=== PATIENT | female | born 1970 | race Caucasian/White ===

== ENCOUNTER 2021-06-19 09:20 | Inpatient (IN) ==
--- NOTE | 2021-06-19 09:47 | DR.SOBA ---
HPI Time Seen Time Seen by Provider: 06/19/21 09:46 Primary Care Physician Primary Care Physician: STEVE SHAW Complaints Chief Complaint Doctors Comments: 51 y/o female presents with cough and shortness of breath. Dx'd donnie Covid 06/07. Was essentially asymptomatic then. Was treated with azithromycin, decadron. Started feeling ill 3 days ago. + cou gh, essentially dry. + having shortness of breath. Pulse ox dropping into the 80s. Having generalized body aches, fever, diarrhea. Has had some nausea, no vomiting. Feeling lightheaded at times. + h/o PE in the past, is on Xarelto. Chief Complaint:: PT. STATES SHE WAS DIAGNOSED WITH COVID 19 ON 06/07/21. PT. C/O SHORTNESS OF BREATH AND A PERSISTENT COUGH. PT. HAS TRIED OTC MEDICATIONS FOR COUGH WITH NO RELIEF. COVID-19 Coronavirus risk:travel/contact w/high risk person: Yes Has patient experienced Coronavirus symptoms: Yes Coronavirus symptoms experienced: Coughing and Shortness of Breath Reviewed Nurses Notes Reviewed: Yes Source History Provided: Patient Mode of Arrival Mode of Arrival: Ambulatory Timing Onset of Chief Complaint: 06/16/21 PMH PMH Past Medical History: Yes Past Medical History: Asthma, Diabetes and Dyslipidemia Past Medical History Comment: DVT, PE Past Surgical History: Yes Surgical History: Ortho Surgery Family History History of Family Medical Conditions: No Social History Does patient currently use any type of tobacco product: No Have you used tobacco products in the last 12 months: No Type of Tobacco Use: None Does any household member use tobacco: No Alcohol Use: None Do you use any recreational Drugs:: No Lives With: Family Lives Where: Home Travel Risk Coronavirus risk:travel/contact w/high risk person: Yes Has patient experienced Coronavirus symptoms: Yes Coronavirus symptoms experienced: Coughing and Shortness of Breath Infectious screening In the last 2 months have you had wt loss of >10#?: NO Have you had fever, night sweats or hemotysis?: No Have you traveled outside the country in the last 6 months?: No Isolation: Droplet ROS Review of Systems Constitutional: Fever and Weakness Eyes: No Symptoms Reported ENTM: No Symptoms Reported Respiratoy: Non-Productive Cough and Short of Breath Cardiovascular: No Symptoms Reported Gastrointestinal/Abdominal: Diarrhea and Nausea Genitourinary: No Symptoms Reported Neurological: Weakness and Dizziness Musculoskeletal: Muscle Pain Integumentary: No Symptoms Reported Hematologic/Lymphatic: No Symptoms Reported Psychiatric: No Symptoms Reported All Other Systems: Reviewed and Negative PE Vital Signs Vitals: Temperature 97.3 F Pulse Rate 77 Respiratory Rate 25 Blood Pressure 118/59 O2 Sat by Pulse Oximetry 95 General Limitations: No Limitations General Appearance: Alert, In No Apparent Distress and Other (+ frequent dry cough) Head Head Exam: Normal Inspection Eyes Eye exam: Normal Appearance, PERRL and EOMI ENT ENT Exam: Normal Exam and Mucous Membranes Moist Neck Neck Exam: Normal Inspection and Full ROM Chest Chest Inspection: Normal Inspection Respiratory Respiratory Exam: Normal Lung Sounds Bilat; negative Accessory Muscle Use and Respiratory Distress Respiratory Exam: Bilateral: Clear to Auscultation Cardiovascular Cardiovascular Exam: Regular Rate, Normal Rhythm and Normal Heart Sounds Abdominal Exam Abdominal Exam: Normal Inspection, Normal Bowel Sounds and Soft; negative Tenderness Extremities Extremities Exam: Normal Inspection and Full ROM; negative Tenderness and Edema Back Back Exam: Normal Inspection Neurologic Neurological Exam: Alert, Oriented X3 and CN II-XII Intact; negative Motor Sensory Deficit Psychiatric Psychiatric Exam: Normal Affect Skin Skin Exam: Warm and Dry MDM Differential Diagnosis Differential Diagnosis: Bronchitis, CHF, Pneumonia and Pulmonary embolism COURSE Treatment Treatment: 51 y/o female with cough, dyspnea over the past 3 days. Dx'd with Covid 2/17, but no symptoms then. W/u initiated. 1300 - CXR with Covid changes. + hypoxic on ABG. Better on O2. Pt reportedly covid + 12 days ago with little symptoms. Having worsening cough, hypoxia. Will admit. Discussed with covering hospitalist, Dr De Leon. + low potassium, 2.8. Given po and IV potassium, was unable to tolerate the IV potassium. Pt given IV rocephin/decadron. ROR Labs Reviewed Laboratory Results Reviewed?: Yes Result Diagrams: 06/19/21 10:07 06/19/21 10:07 Laboratory: WBC 7.2 X10^3/uL (3.6-10.0) 06/19/21 10:07 RBC 5.13 X10^6/uL (3.5-5.4) 06/19/21 10:07 Hgb 12.4 g/dL (12.0-16.0) 06/19/21 10:07 Hct 37.9 % (36.0-47.0) 06/19/21 10:07 MCV 73.9 fL (80.0-100.0) L 06/19/21 10:07 MCH 24.2 pg (27.0-34.0) L 06/19/21 10:07 MCHC 32.7 g/dL (33.0-35.0) L 06/19/21 10:07 RDW 15.0 % (11.6-16.5) 06/19/21 10:07 Plt Count 310 X10^3/uL (150.0-450.0) 06/19/21 10:07 Plt Count Comment Adequate (ADEQUATE) 06/19/21 10:07 MPV 7.2 fL (7.4-11.0) L 06/19/21 10:07 Neut % (Auto) 79.1 % (42.0-75.0) H 06/19/21 10:07 Lymph % (Auto) 13.1 % (21.0-51.0) L 06/19/21 10:07 Kay % (Auto) 7.6 % (0.0-13.0) 06/19/21 10:07 Eos % (Auto) 0.1 % (0.9-2.9) L 06/19/21 10:07 Baso % (Auto) 0.1 % (0.2-1.0) L 06/19/21 10:07 Neut # (Auto) 5.7 x10^3/uL (2.2-4.8) H 06/19/21 10:07 Lymph # (Auto) 0.9 X10^3/uL (1.3-2.9) L 06/19/21 10:07 Kay # (Auto) 0.5 x10^3/uL (0.3-0.8) 06/19/21 10:07 Eos # (Auto) 0.0 x10^3/uL (0.0-0.2) 06/19/21 10:07 Baso # (Auto) 0.0 X10^3/uL (0.0-0.1) 06/19/21 10:07 Absolute Nucleated RBC 0.1 /100WBC 06/19/21 10:07 Plt Morphology Comment Normal (NORMAL) 06/19/21 10:07 RBC Morphology Abnormal (NORMAL) A 06/19/21 10:07 Hypochromasia Slight A 06/19/21 10:07 Microcytosis Slight A 06/19/21 10:07 D-Dimer 0.49 ug/ml (0.0-0.57) 06/19/21 10:07 Sample Site Rr 06/19/21 11:45 ABG pH 7.470 (7.35-7.45) H 06/19/21 11:45 ABG pCO2 34.0 mmHg (35.0-45.0) L 06/19/21 11:45 ABG pO2 56.0 mmHg (80.0-100.0) L 06/19/21 11:45 ABG HCO3 24.7 mmol/L (22-26) 06/19/21 11:45 ABG O2 Saturation 91.0 % (90-100) 06/19/21 11:45 ABG Base Excess 1.4 mmol/L (-2.0-2.0) 06/19/21 11:45 Juan Test Pos 06/19/21 11:45 A-a Gradient 51.0 mmHg 06/19/21 11:45 FiO2 21.0 06/19/21 11:45 Blood Gas Comments Milagro well 06/19/21 11:45 Sodium 140 mmol/L (136-145) 06/19/21 10:07 Corrected Sodium 141 mmol/L (136-145) 06/19/21 10:07 Potassium 2.8 mmol/L (3.5-5.1) L* 06/19/21 10:07 Chloride 105 mmol/L (98-107) 06/19/21 10:07 Carbon Dioxide 23.6 mmol/L (21-32) 06/19/21 10:07 BUN 17 mg/dL (7-18) 06/19/21 10:07 Creatinine 1.07 mg/dL (0.55-1.02) H 06/19/21 10:07 Est GFR (MDRD) Af Amer > 60 (>60) 06/19/21 10:07 Est GFR (MDRD) Non-Af 57 (>60) L 06/19/21 10:07 Glucose 152 mg/dL (65-99) H 06/19/21 10:07 Calcium 7.6 mg/dL (8.5-10.1) L 06/19/21 10:07 Corrected Calcium 8.8 mg/dL (8.5-10.1) 06/19/21 10:07 Total Bilirubin 1.00 mg/dL (0.2-1.0) 06/19/21 10:07 AST 24 Units/L (15-37) 06/19/21 10:07 ALT 38 Units/L (12-78) 06/19/21 10:07 Alkaline Phosphatase 57 Units/L (46-116) 06/19/21 10:07 Creatine Kinase 128 Units/L (26-192) 06/19/21 10:07 CK-MB (CK-2) < 1.0 ng/mL (0-4.0) 06/19/21 10:07 CK/CKMB % Calc 0.8 % (<4) 06/19/21 10:07 Troponin I High Sens 8.1 ng/L (4.0-60.0) 06/19/21 10:07 B-Natriuretic Peptide 34.3 pg/mL (0-79) 06/19/21 10:07 Total Protein 6.3 g/dL (6.4-8.2) L 06/19/21 10:07 Albumin 2.5 g/dL (3.4-5.0) L 06/19/21 10:07 Globulin 3.8 g/dL (2.5-4.5) 06/19/21 10:07 Albumin/Globulin Ratio 0.7 Ratio (1.1-2.1) L 06/19/21 10:07 SARS-CoV-2 (PCR) Positive (NEGATIVE) A 06/19/21 10:07 Influenza Type A (PCR) Negative (NEGATIVE) 06/19/21 10:07 Influenza Type B (PCR) Negative (NEGATIVE) 06/19/21 10:07 RSV (PCR) Negative (NEGATIVE) 06/19/21 10:07 Other Results Comments: Potassium 2.8, + for covid EKG Rate: 82 [place]: Normal Rhythm: NSR Block: IVCD ST: Nonsp Opioid Opioid Risk Tool Age (Vijay box if 16-45): No History of Preadolescent Sexual Abuse: No Total: 0 Total Score Risk Category: Low Risk Copyright: Gopal LIN predicting aberrant behaviors Diagnosis Discharge Problem: Pneumonia due to 2019-nCoV, Hypoxia, Acute hypokalemia
--- NOTE | 2021-06-19 10:08 | RAD ---
HISTORYShortness of breathSTUDYSingle-view chestCOMPARISONNone availableFINDINGSThe trachea is midline. The cardiac silhouette is enlarged with a tortuous thoracic aorta. Scattered interstitial lung changes arms are prominent vascular markings. The findings may be on the basis of atypical infectious etiology or underlying developing CHF. The bony thorax is unremarkable.IMPRESSIONDiffuse interstitial changes with prominent perivascular hilar changes for which different considered would be atypical pneumonia versus developing CHF.Electronically signed by: YUN GONZALEZ (Jun 19, 2021 10:07:33)
[2021-06-19] MEDS ORDERED: TESSALON PERLES PO ONE ×2 (10:14→10:24)
[2021-06-19 10:16] LABS: BASOPHILS % (AUTO) 0.1 % (0.2-1.0); EOSINOPHILS % (AUTO) 0.1 % (0.9-2.9); HEMATOCRIT 37.9 % (36.0-47.0); HEMOGLOBIN 12.4 g/dL (12.0-16.0); LYMPHOCYTES # (AUTO) 0.9 X10^3/uL (1.3-2.9); LYMPHOCYTES % (AUTO) 13.1 % (21.0-51.0); MEAN CORPUSCULAR HEMOGLOBIN 24.2 pg (27.0-34.0); MEAN CORPUSCULAR HGB CONC 32.7 g/dL (33.0-35.0); MEAN CORPUSCULAR VOLUME 73.9 fL (80.0-100.0); MEAN PLATELET VOLUME 7.2 fL (7.4-11.0); MONOCYTES # (AUTO) 0.5 x10^3/uL (0.3-0.8); MONOCYTES % (AUTO) 7.6 % (0.0-13.0); NEUTROPHILS # (AUTO) 5.7 x10^3/uL (2.2-4.8); NEUTROPHILS % (AUTO) 79.1 % (42.0-75.0); RED BLOOD COUNT 5.13 X10^6/uL (3.5-5.4); WHITE BLOOD COUNT 7.2 X10^3/uL (3.6-10.0)
[2021-06-19 10:35] LABS: HYPOCHROMASIA SLIGHT; MICROCYTOSIS SLIGHT; PLATELET MORPHOLOGY COMMENT NORMAL (NORMAL)
[2021-06-19 10:43] LABS: ALANINE AMINOTRANSFERASE 38 Units/L (12-78); ALBUMIN 2.5 g/dL (3.4-5.0); ALKALINE PHOSPHATASE 57 Units/L (46-116); ASPARTATE AMINO TRANSFERASE 24 Units/L (15-37); BLOOD UREA NITROGEN 17 mg/dL (7-18); CALCIUM 7.6 mg/dL (8.5-10.1); CARBON DIOXIDE 23.6 mmol/L (21-32); CHLORIDE 105 mmol/L (98-107); CKMB % 0.8 % (<4); COR CA(FOR HYPOALB) 8.8 mg/dL (8.5-10.1); COR NA(FOR HYPERGLY) 141 mmol/L (136-145); CREATINE KINASE 128 Units/L (26-192); CREATINE KINASE MB < 1.0 ng/mL (0-4.0); CREATININE 1.07 mg/dL (0.55-1.02); SODIUM 140 mmol/L (136-145); TOTAL PROTEIN 6.3 g/dL (6.4-8.2); eGFR NON BLACK RACES 57 (>60)
[2021-06-19] MEDS ORDERED: POTASSIUM CHLORIDE LIQ 20 MEQ UDC PO ONE (11:21)
[2021-06-19] MEDS ORDERED: K-RIDER 10 MEQ/NS 100 ML 10 MEQ/100 ML BAG IV ONE ×2 (11:21→11:40)
[2021-06-19] MEDS ORDERED: POTASSIUM CHLORIDE LIQ 20 MEQ UDC ONE (11:40)
[2021-06-19 11:50] LABS: ABG ALLEN TEST POS; ABG BASE EXCESS 1.4 mmol/L (-2.0-2.0); ABG HCO3 24.7 mmol/L (22-26)
[2021-06-19] MEDS ORDERED: DECADRON INJ IVP ONE (13:28)
[2021-06-19] MEDS ORDERED: DECADRON INJ ONE (13:38)
[2021-06-19] MEDS ORDERED: MAGNESIUM SULFATE 1 GRAM/100 mL PREMIX 1 G/100 ML BAG IV PRN (14:34)
[2021-06-19] MEDS ORDERED: POTASSIUM CHLORIDE LIQ 20 MEQ UDC PO PRN (14:34)
[2021-06-19] MEDS ORDERED: POTASSIUM CHL 40 MEQ/NS 0.45% 500 ML IV PRN (14:34)
[2021-06-19] MEDS ORDERED: POTASSIUM CHL 60 MEQ/NS 0.45% 500 ML IV PRN (14:34)
[2021-06-19] MEDS ORDERED: K-RIDER 10 MEQ/NS 100 ML 10 MEQ/100 ML BAG IV PRN (14:34)
[2021-06-19] MEDS ORDERED: KLOR-CON PO PRN (14:34)
[2021-06-19] MEDS ORDERED: MICRO K EXTEN CAP 10 MEQ PO PRN (14:34)
[2021-06-19] MEDS ORDERED: K-DUR TAB 20 MEQ PO PRN (14:34)
[2021-06-19] MEDS ORDERED: NS 250 ML IV 250 ML IV ONE (15:33)
[2021-06-19] MEDS: ROCEPHIN 1 GRAM IV PREMIX 1 G/50 ML IV.SOLN. IV SCH (15:45)
[2021-06-19] MEDS: XOPENEX 1.25 MG/3 ML NEBULE NEB SCH (17:50)
[2021-06-19] MEDS ORDERED: NovoLIN R (or HumuLIN R) SUBCUT PRN (20:33)
[2021-06-19] MEDS: PULMICORT NEB TX 0.5 MG NEB SCH (20:38)
[2021-06-19] MEDS: BROVANA IN SCH (20:38)
[2021-06-19] MEDS: K-DUR TAB 20 MEQ PO SCH (20:52)
[2021-06-20] MEDS: XOPENEX 1.25 MG/3 ML NEBULE NEB SCH ×4 (00:44→16:59)
[2021-06-20] MEDS: TESSALON PERLES PO PRN ×3 (04:23→20:39)
[2021-06-20 04:40] LABS: BASOPHILS % (AUTO) 0.2 % (0.2-1.0); HEMATOCRIT 37.5 % (36.0-47.0); HEMOGLOBIN 12.4 g/dL (12.0-16.0); LYMPHOCYTES # (AUTO) 0.8 X10^3/uL (1.3-2.9); LYMPHOCYTES % (AUTO) 20.7 % (21.0-51.0); MEAN CORPUSCULAR HEMOGLOBIN 24.3 pg (27.0-34.0); MEAN CORPUSCULAR VOLUME 73.5 fL (80.0-100.0); MEAN PLATELET VOLUME 7.4 fL (7.4-11.0); MONOCYTES # (AUTO) 0.3 x10^3/uL (0.3-0.8); MONOCYTES % (AUTO) 9.3 % (0.0-13.0); NEUTROPHILS # (AUTO) 2.6 x10^3/uL (2.2-4.8); NEUTROPHILS % (AUTO) 69.8 % (42.0-75.0); RED BLOOD COUNT 5.11 X10^6/uL (3.5-5.4); RED CELL DISTRIBUTION WIDTH 14.9 % (11.6-16.5); WHITE BLOOD COUNT 3.7 X10^3/uL (3.6-10.0)
[2021-06-20 04:51] LABS: ALANINE AMINOTRANSFERASE 34 Units/L (12-78); ALBUMIN 2.4 g/dL (3.4-5.0); ALKALINE PHOSPHATASE 54 Units/L (46-116); ASPARTATE AMINO TRANSFERASE 19 Units/L (15-37); BLOOD UREA NITROGEN 20 mg/dL (7-18); CALCIUM 7.9 mg/dL (8.5-10.1); CARBON DIOXIDE 26.1 mmol/L (21-32); CHLORIDE 109 mmol/L (98-107); COR CA(FOR HYPOALB) 9.2 mg/dL (8.5-10.1); COR NA(FOR HYPERGLY) 145 mmol/L (136-145); CREATININE 0.85 mg/dL (0.55-1.02); SODIUM 144 mmol/L (136-145); TOTAL PROTEIN 6.5 g/dL (6.4-8.2); eGFR NON BLACK RACES > 60 (>60)
[2021-06-20 05:07] LABS: PLATELET MORPHOLOGY COMMENT NORMAL (NORMAL)
[2021-06-20 05:09] LABS: MICROCYTOSIS SLIGHT
[2021-06-20] MEDS: BROVANA IN SCH ×2 (08:05→20:28)
[2021-06-20] MEDS: PULMICORT NEB TX 0.5 MG NEB SCH ×2 (08:05→20:28)
[2021-06-20] MEDS: K-DUR TAB 20 MEQ PO SCH ×2 (09:10→20:38)
[2021-06-20] MEDS: XARELTO PO SCH (09:10)
[2021-06-20] MEDS: DECADRON INJ IVP SCH (09:10)
[2021-06-20] MEDS: ROCEPHIN 1 GRAM IV PREMIX 1 G/50 ML IV.SOLN. IV SCH (09:10)
[2021-06-20 13:52] VITALS: BMI 36.7
[2021-06-20] MEDS ORDERED: PATIENT'S HOME MEDICATION (Fluticasone Furoate-Vilanterol [Breo Ellipta] 100-25 mcg/dose b IN PRN (15:46)
[2021-06-20] MEDS ORDERED: XARELTO PO SCH (16:00)
--- NOTE | 2021-06-20 16:23 | DR.H&P ---
H&P - History & Physical for Day of: H&P Date: 06/19/21 - Chief Complaint Chief Complaint: Dyspnea - History of Present Illness History of Present Illness: Patient is a 51 year old white female who was admitted due to pneumonia/COVID. PAtient reports symptoms began on 06/14/21 and have progressively gotten worse. States she was treated with PO abx and steroids by PCP without improvement. Reports cough, fever, dyspnea. Has not been vaccinated for COVID. Non smoker. PMH DM, HTN. PCP in [place]. - Past Medical History Past Medical History: Dyslipidemia, Diabetes, Asthma - Past Surgical History Surgical History: Hysterectomy, Ortho Surgery - Family History Family Medical History: Cancer - Social History Does patient currently use any type of tobacco product: No Have you used tobacco products in the last 12 months: No Type of Tobacco Use: None Does any household member use tobacco: No Alcohol Use: None Drug Use: None - Medications Home Medications: methylprednisolone [From Medrol] Allergy (Verified 06/19/21 09:24) shrimp Allergy (Verified 06/19/21 09:24) CONTINUE taking the following medications diltiazem HCl 180 mg PO DAILY 06/19/21 [History] fluticasone furoate-vilanterol [Breo Ellipta] 1 ea INHALATION PRN PRN 06/19/21 [History] metformin 500 mg PO DAILY 06/19/21 [History] montelukast 10 mg PO DAILY 06/19/21 [History] omeprazole 20 mg PO DAILY 06/19/21 [History] rivaroxaban [Xarelto] 10 mg PO DAILY 06/19/21 [History] - Review of Systems Constitutional: See HPI Eyes: See HPI ENT: See HPI Respiratory: See HPI Cardiovascular: See HPI Gastrointestinal: See HPI Genitourinary: See HPI Musculoskeletal: See HPI Skin: See HPI Neurological: See HPI - Physical Exam Vital Signs: Temperature 98.2 F Pulse Rate [Left Radial] 51 Pulse Rate 80 Respiratory Rate 28 Blood Pressure [Left Arm] 102/65 Blood Pressure 104/60 O2 Sat by Pulse Oximetry 97 Oriented: Normal, Time, Person, Place Eyes: Normal Ear: Normal Nose: Normal Throat: Normal Respiratory: Rhonchi Throughout Cardiovascular: Normal : Normal Auscultation: Bowel Sounds: Normal Palpation: Normal Tenderness: Normal Skin: Normal Musculoskeletal: Normal Psychiatric: Normal Mood Description: Calm Affect: Normal Speech Pattern: Clear, Appropriate - Assessment/Plan (1) Pneumonia due to 2019-nCoV Status: Acute Plan: Admit. IV abx and steroids. Cultures. Trend ABG and CXR (2) Hypoxia Status: Acute (3) Acute hypokalemia Status: Acute Plan: Replace (4) Diabetes type 2, controlled Status: Chronic Plan: Home meds - Allergies Allergies/Adverse Reactions: Allergies Allergy/AdvReac Type Severity Reaction Status Date / Time methylprednisolone Allergy Verified 06/19/21 09:24 [From Medrol] shrimp Allergy Verified 06/19/21 09:24
--- NOTE | 2021-06-20 16:25 | PCM.PROG ---
Progress Note - Subjective Subjective: Patient was admitted as per HPI. Patient reports improvement in symptoms. Reports breathing is better. Patient is tolerating room air oxygen. No other concerns at present. - Past Medical Family Social History Past Med/Fam/Surg Hx: No changes since H&P Allergies: Allergies methylprednisolone [From Medrol] Allergy (Verified 06/19/21 09:24) shrimp Allergy (Verified 06/19/21 09:24) - Review of Systems ROS: No change since H&P - Vital Signs and I&O's Vital Signs: Temperature 98.2 F Pulse Rate [Left Radial] 51 Pulse Rate 80 Respiratory Rate 28 Blood Pressure [Left Arm] 102/65 Blood Pressure 104/60 O2 Sat by Pulse Oximetry 97 Intake and Output: Intake & Output 06/17/21 06/18/21 06/19/21 06/20/21 23:59 23:59 23:59 23:59 Intake Total 190 / 190 110 / 110 Balance 190 / 190 110 / 110 - Physical Exam Oriented: Normal, Time, Person, Place Eyes: Normal Ear: Normal Nose: Normal Throat: Normal Respiratory: Rhonchi Cardiovascular: Normal : Normal Auscultation: Bowel Sounds: Normal Palpation: Normal Tenderness: Normal Skin: Normal Musculoskeletal: Normal Psychiatric: Normal Mood Description: Calm Affect: Normal Speech Pattern: Clear, Appropriate - Laboratory and Diagnostics Result Diagrams: 06/20/21 04:13 06/20/21 04:13 Labs: Laboratory WBC 3.7 X10^3/uL (3.6-10.0) 06/20/21 04:13 RBC 5.11 X10^6/uL (3.5-5.4) 06/20/21 04:13 Hgb 12.4 g/dL (12.0-16.0) 06/20/21 04:13 Hct 37.5 % (36.0-47.0) 06/20/21 04:13 MCV 73.5 fL (80.0-100.0) L 06/20/21 04:13 MCH 24.3 pg (27.0-34.0) L 06/20/21 04:13 MCHC 33.0 g/dL (33.0-35.0) 06/20/21 04:13 RDW 14.9 % (11.6-16.5) 06/20/21 04:13 Plt Count 324 X10^3/uL (150.0-450.0) 06/20/21 04:13 Plt Count Comment Adequate (ADEQUATE) 06/20/21 04:13 MPV 7.4 fL (7.4-11.0) 06/20/21 04:13 Neut % (Auto) 69.8 % (42.0-75.0) 06/20/21 04:13 Lymph % (Auto) 20.7 % (21.0-51.0) L 06/20/21 04:13 [place] % (Auto) 9.3 % (0.0-13.0) 06/20/21 04:13 Eos % (Auto) 0.0 % (0.9-2.9) L 06/20/21 04:13 Baso % (Auto) 0.2 % (0.2-1.0) 06/20/21 04:13 Neut # (Auto) 2.6 x10^3/uL (2.2-4.8) 06/20/21 04:13 Lymph # (Auto) 0.8 X10^3/uL (1.3-2.9) L 06/20/21 04:13 [place] # (Auto) 0.3 x10^3/uL (0.3-0.8) 06/20/21 04:13 Eos # (Auto) 0.0 x10^3/uL (0.0-0.2) 06/20/21 04:13 Baso # (Auto) 0.0 X10^3/uL (0.0-0.1) 06/20/21 04:13 Absolute Nucleated RBC 0.1 /100WBC 06/20/21 04:13 Plt Morphology Comment Normal (NORMAL) 06/20/21 04:13 RBC Morphology Abnormal (NORMAL) A 06/20/21 04:13 Hypochromasia Slight A 06/19/21 10:07 Microcytosis Slight A 06/20/21 04:13 D-Dimer 0.49 ug/ml (0.0-0.57) 06/19/21 10:07 Sample Site Rr 06/19/21 11:45 ABG pH 7.470 (7.35-7.45) H 06/19/21 11:45 ABG pCO2 34.0 mmHg (35.0-45.0) L 06/19/21 11:45 ABG pO2 56.0 mmHg (80.0-100.0) L 06/19/21 11:45 ABG HCO3 24.7 mmol/L (22-26) 06/19/21 11:45 ABG O2 Saturation 91.0 % (90-100) 06/19/21 11:45 ABG Base Excess 1.4 mmol/L (-2.0-2.0) 06/19/21 11:45 Juan Test Pos 06/19/21 11:45 A-a Gradient 51.0 mmHg 06/19/21 11:45 FiO2 21.0 06/19/21 11:45 Blood Gas Comments Milagro well 06/19/21 11:45 Sodium 144 mmol/L (136-145) 06/20/21 04:13 Corrected Sodium 145 mmol/L (136-145) 06/20/21 04:13 Potassium 3.5 mmol/L (3.5-5.1) 06/20/21 04:13 Chloride 109 mmol/L (98-107) H 06/20/21 04:13 Carbon Dioxide 26.1 mmol/L (21-32) 06/20/21 04:13 BUN 20 mg/dL (7-18) H 06/20/21 04:13 Creatinine 0.85 mg/dL (0.55-1.02) 06/20/21 04:13 Est GFR (MDRD) Af Amer > 60 (>60) 06/20/21 04:13 Est GFR (MDRD) Non-Af > 60 (>60) 06/20/21 04:13 Glucose 139 mg/dL (65-99) H 06/20/21 04:13 POC Glucose (mg/dL) 155 mg/dL (65-99) H 06/20/21 16:00 Calcium 7.9 mg/dL (8.5-10.1) L 06/20/21 04:13 Corrected Calcium 9.2 mg/dL (8.5-10.1) 06/20/21 04:13 Magnesium 2.5 mg/dL (1.7-2.9) 06/19/21 10:07 Total Bilirubin 0.60 mg/dL (0.2-1.0) 06/20/21 04:13 AST 19 Units/L (15-37) 06/20/21 04:13 ALT 34 Units/L (12-78) 06/20/21 04:13 Alkaline Phosphatase 54 Units/L (46-116) 06/20/21 04:13 Creatine Kinase 128 Units/L (26-192) 06/19/21 10:07 CK-MB (CK-2) < 1.0 ng/mL (0-4.0) 06/19/21 10:07 CK/CKMB % Calc 0.8 % (<4) 06/19/21 10:07 Troponin I High Sens 8.1 ng/L (4.0-60.0) 06/19/21 10:07 B-Natriuretic Peptide 34.3 pg/mL (0-79) 06/19/21 10:07 Total Protein 6.5 g/dL (6.4-8.2) 06/20/21 04:13 Albumin 2.4 g/dL (3.4-5.0) L 06/20/21 04:13 Globulin 4.1 g/dL (2.5-4.5) 06/20/21 04:13 Albumin/Globulin Ratio 0.6 Ratio (1.1-2.1) L 06/20/21 04:13 SARS-CoV-2 (PCR) Positive (NEGATIVE) A 06/19/21 10:07 Influenza Type A (PCR) Negative (NEGATIVE) 06/19/21 10:07 Influenza Type B (PCR) Negative (NEGATIVE) 06/19/21 10:07 RSV (PCR) Negative (NEGATIVE) 06/19/21 10:07 - Plan (1) Pneumonia due to 2019-nCoV Status: Acute Plan: Admit. IV abx and steroids. Cultures. Trend ABG and CXR (2) Hypoxia Status: Acute (3) Acute hypokalemia Status: Acute Plan: Replace (4) Diabetes type 2, controlled Status: Chronic Plan: Home meds
[2021-06-20] MEDS ORDERED: GLUCOPHAGE ONE (17:04)
[2021-06-20] MEDS: GLUCOPHAGE PO SCH (17:12)
[2021-06-20] MEDS: SINGULAIR TAB 10 MG PO SCH (17:12)
[2021-06-20] MEDS: PriLOSEC PO SCH (17:12)
[2021-06-20] MEDS ORDERED: SNACK - Diabetic Appropriate PO SCH (20:00)
[2021-06-21] MEDS: XOPENEX 1.25 MG/3 ML NEBULE NEB SCH ×3 (00:12→13:15)
[2021-06-21 05:21] LABS: BASOPHILS % (AUTO) 0.2 % (0.2-1.0); EOSINOPHILS % (AUTO) 0.1 % (0.9-2.9); HEMATOCRIT 36.4 % (36.0-47.0); HEMOGLOBIN 11.8 g/dL (12.0-16.0); LYMPHOCYTES # (AUTO) 1.4 X10^3/uL (1.3-2.9); LYMPHOCYTES % (AUTO) 24.9 % (21.0-51.0); MEAN CORPUSCULAR HEMOGLOBIN 24.2 pg (27.0-34.0); MEAN CORPUSCULAR HGB CONC 32.3 g/dL (33.0-35.0); MEAN CORPUSCULAR VOLUME 74.9 fL (80.0-100.0); MEAN PLATELET VOLUME 7.7 fL (7.4-11.0); MONOCYTES # (AUTO) 0.4 x10^3/uL (0.3-0.8); MONOCYTES % (AUTO) 7.8 % (0.0-13.0); NEUTROPHILS # (AUTO) 3.8 x10^3/uL (2.2-4.8); RED BLOOD COUNT 4.87 X10^6/uL (3.5-5.4); RED CELL DISTRIBUTION WIDTH 15.2 % (11.6-16.5); WHITE BLOOD COUNT 5.6 X10^3/uL (3.6-10.0)
[2021-06-21 05:34] LABS: ALANINE AMINOTRANSFERASE 30 Units/L (12-78); ALBUMIN 2.2 g/dL (3.4-5.0); ALKALINE PHOSPHATASE 45 Units/L (46-116); ASPARTATE AMINO TRANSFERASE 18 Units/L (15-37); BLOOD UREA NITROGEN 24 mg/dL (7-18); CALCIUM 7.8 mg/dL (8.5-10.1); CARBON DIOXIDE 25.9 mmol/L (21-32); CHLORIDE 111 mmol/L (98-107); COR CA(FOR HYPOALB) 9.2 mg/dL (8.5-10.1); CREATININE 0.94 mg/dL (0.55-1.02); SODIUM 144 mmol/L (136-145); eGFR NON BLACK RACES > 60 (>60)
[2021-06-21 05:39] LABS: ABG ALLEN TEST YES; ABG BASE EXCESS -3.9 mmol/L (-2.0-2.0); ABG HCO3 20.8 mmol/L (22-26)
[2021-06-21 05:54] LABS: MICROCYTOSIS SLIGHT; PLATELET MORPHOLOGY COMMENT NORMAL (NORMAL)
--- NOTE | 2021-06-21 06:03 | RAD ---
HISTORYFollow-up pneumoniaSTUDYChest AP [id number] heart is enlarged. No definite congestive heart failure is noted. Subtle perihilar right upper lobe infiltrates remain. Peripheral left basilar lung infiltrate remains. Remainder of the lung regalado are clear. No pleural effusion or pneumothorax is identified. Bony thorax is unremarkable.IMPRESSIONNo change cardiomegaly without congestive heart failureNo change right perihilar predominantly upper lobe and peripheral left basilar lung infiltratesElectronically signed by: JEMAL POLLARD (Jun 21, 2021 06:01:35)
[2021-06-21] MEDS: PULMICORT NEB TX 0.5 MG NEB SCH (08:15)
[2021-06-21] MEDS: BROVANA IN SCH (08:15)
[2021-06-21] MEDS ORDERED: GLUCOPHAGE ONE (09:32)
[2021-06-21] MEDS: GLUCOPHAGE PO SCH (09:36)
[2021-06-21] MEDS: DECADRON INJ IVP SCH (09:36)
[2021-06-21] MEDS: K-DUR TAB 20 MEQ PO SCH (09:37)
[2021-06-21] MEDS: SINGULAIR TAB 10 MG PO SCH (09:37)
[2021-06-21] MEDS: PriLOSEC PO SCH (09:37)
[2021-06-21] MEDS: XARELTO PO SCH (09:37)
[2021-06-21] MEDS: ROCEPHIN 1 GRAM IV PREMIX 1 G/50 ML IV.SOLN. IV SCH (09:37)
[2021-06-21 13:18] VITALS: BP 99/56
--- NOTE | 2021-07-10 14:11 | PCM.DCPLAN ---
Discharge Plan - Discharge Plan Hospital Course: Admit date 06/19/21 Discharge date 06/21/21 DOS 06/21/21 Admit diagnosis: (1) Pneumonia due to 2019-nCoV (2) Hypoxia (3) Acute hypokalemia (4) Diabetes type 2, controlled Discharge diagnosis: Same Hospital Course Patient is a 51 year old white female who was admitted due to pneumonia/COVID. PAtient reports symptoms began on 06/14/21 and have progressively gotten worse. States she was treated with PO abx and steroids by PCP without improvement. Reports cough, fever, dyspnea. Has not been vaccinated for COVID. Patient was treated with IV abx and steroids, duo nebs, and supplemental oxygen. Patient's ABG was monitored. Patient did not require continuous oxygen. Patient tolerated room oxygen. Patient symptoms improved. Patient was discharged home with PO abx. Patient is to follow up with PCP as scheduled. Labs improved. Greater than 35 minutes spent on discharge.to discomfort; Disposition: 01 HOME, SELF-CARE Condition: Stable Health Concerns: Post Hospitalization: new medications and changes needed to prevent readmission or further decline. Pt educated and given instructions on all concerns. Care Plan Goals: Problem: Respiratory Complications Goal: Improved Uncomplicated Respiratory Status Instructions: Follow provided instructions. Follow up with primary physician as directed. Contact primary care physician or report to the closest Emergency Room if condition worsens. Plan of Treatment: Continue with present treatment and follow up plan. Pt is to keep follow up appointment as instructed and take medications as ordered. Prescriptions: No Action Breo Ellipta 100-25 mcg/dose blister with device 1 ea INHALATION PRN PRN diltiazem HCl 180 mg Capsule,Extended Release 24hr 180 mg PO DAILY metformin 500 mg tablet 500 mg PO DAILY montelukast 10 mg tablet 10 mg PO DAILY omeprazole 20 mg capsule,delayed release(DR/EC) 20 mg PO DAILY Xarelto 10 mg tablet 10 mg PO DAILY - Follow ups/Referrals Follow ups/Referrals: STEVE SHAW [Primary Care Provider] - 06/26/21 2:30 pm
== END 2021-06-21 15:00 | disposition home or self-care (01) | DRG 177 ==
LOC: ER 09:20 → ICU 13:26
PROVIDERS: ADMIT Internal Medicine; ATTEND Internal Medicine
DX: E11.65 Type 2 diabetes mellitus with hyperglycemia; J12.82 Pneumonia due to coronavirus disease 2019; E87.6 Hypokalemia; R94.31 Abnormal electrocardiogram [ECG] [EKG]; I10 Essential (primary) hypertension; U07.1 COVID-19; R06.02 Shortness of breath